=== PATIENT | female | born 1940 | race Caucasian/White ===

== ENCOUNTER → 2016-12-24 | Outpatient (CLI) | payer MEDICARE, OTHER | END | disposition home or self-care (01) | LOC: LAB 08:07 | PROVIDERS: ATTEND Family Medicine | DX: E03.9 Hypothyroidism, unspecified (principal) | CPT/HCPCS: 84443 ==

== ENCOUNTER → 2020-08-30 | Outpatient (CLI) | payer MEDICARE, OTHER ==
[2020-08-30 15:58] LABS: BASO # 0.2 x10^3/uL (0.0-0.2); BASO % 2 % (0-3); EOS # 0.4 x10^3/uL (0.0-0.7); EOS % 3 % (0-3); HEMATOCRIT 41.2 % (36.0-47.0); HEMOGLOBIN 13.1 g/dL (12.0-15.5); LYMPH # 3.1 x10^3/uL (1.0-4.8); LYMPH % 23 % (24-48); MEAN CORPUSCULAR HEMOGLOBIN 28 pg (25-35); MEAN CORPUSCULAR HGB CONC 32 g/dL (31-37); MEAN CORPUSCULAR VOLUME 88 fL (79-100); MONO # 0.9 x10^3/uL (0.0-1.1); MONO % 6 % (0-9); NEUT # 9.2 x10^3uL (1.8-7.7); NEUT % 67 % (31-73); PLATELET COUNT 479 x10^3/uL (140-400); RED BLOOD COUNT 4.68 x10^6/uL (3.50-5.40); RED CELL DISTRIBUTION WIDTH 14.5 % (11.5-14.5); WHITE BLOOD COUNT 13.8 x10^3/uL (4.0-11.0)
== END ==
LOC: DXRAD 14:49
PROVIDERS: ATTEND Family Medicine
DX: R06.02 Shortness of breath (principal)
CPT/HCPCS: 36415; 84145; 85025

== ENCOUNTER → 2021-03-14 | Outpatient (CLI) | payer MEDICARE, OTHER ==
--- NOTE | 2021-03-18 15:47 | RAD ---
MG BILAT SCREEN 03/14/2021 11:42 AM INDICATION: Asymptomatic screening mammogram. COMPARISON: 06/07/2014 TECHNIQUE: 2D CC and MLO projections were obtained of each breast. FINDINGS: Breast density: Category B: There are scattered areas of fibroglandular density. Right breast: There are no suspicious microcalcifications, masses or areas of architectural distortio n. Left breast: There are no suspicious microcalcifications, masses or areas of architectural distortion . Bilateral mammogram is compared to prior examinations appears unchanged. IMPRESSION: Negative bilateral mammogram. BI-RADS category: 1; Negative Recommendations: Recommend annual screening mammography in one year. Electronically signed by: Tabitha Solomon MD (03/18/2021 3:45 PM) [id number]
== END ==
LOC: MAMMO 11:12
PROVIDERS: ATTEND Family Medicine
DX: Z12.31 Encounter for screening mammogram for malignant neoplasm of breast (principal)
CPT/HCPCS: 77063; 77067

== ENCOUNTER 2021-12-01 10:45 | Emergency (ER) | payer MEDICARE, OTHER ==
[~2021-12-01] VITALS: Ht 154.9 cm; Wt 82.0 kg
--- NOTE | 2021-12-01 11:31 | PHYS DOC ---
Past History Additional Past Medical Histor: Gout, dry eyes, osteoporosis, psoriasis Past Surgical History: Appendectomy, Cholecystectomy, Hysterectomy, Other Additional Past Surgical Histo: breast BX, spinal stimulator General Adult EDM: Chief Complaint: MULTIPLE COMPLAINTS HPI: HPI: Patient is an 81-year-old female who presents to the emergency department for aphasia. Patient reports that last night around 2300 she started having a headache she got up and took a hydrocodone. Last known well 2300 last night. She states that she woke up around 8 15-8 30 and noticed that she had difficulty finding her words. Her daughter arrived around 830 and also witnessed aphasia. Patient's daughter reported that they ate breakfast and after eating a significant amount of her breakfast they checked her blood sugar and it was 98. The aphasia quickly resolved. Patient's current complaint is dizziness. She reports that it feels like she is cross eyed. She denies any unilateral weakness, dysuria, hematuria, fever, increased shortness of breath, increased cough as patient does have a history of COPD and a chronic cough, vision loss or blurred vision, headache. Patient has a history of gout, CHF, hyperlipidemia, hypothyroidism, diabetes, hypertension. Patient also has a back stimulator for chronic back pain was recently changed out. Review of Systems: Review of Systems: Constitutional: see HPI Eyes: see HPI Respiratory: see HPI GI: see HPI : see HPI Musculoskeletal: reports chronic back pain-has spinal stimulator Neurologic: see HPI Endocrine: see HPI Physical Exam: PE: Constitutional: Well developed, well nourished, no acute distress, non-toxic appearance. [] HENT: Normocephalic, atraumatic, bilateral external ears normal, oropharynx moist, no oral exudates, nose normal. [] Eyes: PERRL,4mm bilaterally, no nystagmus, EOMI, conjunctiva normal, no discharge. [] Neck: Normal range of motion, no stridor Cardiovascular:Heart rate regular, no murmur [] Lungs & Thorax: Bilateral breath sounds clear to auscultation [] Abdomen: Bowel sounds normal, soft, no tenderness, obese, no masses, no pulsatile masses. [] Skin: Warm, dry, no erythema, no rash. [] Back: No tenderness Extremities: No tenderness, no cyanosis, no clubbing, ROM intact, no edema. 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 [] Psychologic: Affect normal, judgement normal, mood normal. [] Current Patient Data: Vital Signs: Vital Signs Date Time Temp Pulse Resp B/P (MAP) Pulse Ox O2 Delivery O2 Flow Rate FiO2 12/01/21 10:45 97.9 105 20 131/49 (76) 93 Room Air EKG: EKG: EKG performed by ER staff at 1142 shows sinus rhythm rate of 94, QTc 428, no STEMI read by Dr. Glaser. Radiology/Procedures: Radiology/Procedures: []PROCEDURE: CT HEAD WO CONTRAST CT brain without contrast. HISTORY: Aphasia CT scan of brain was done without contrast. Sinuses are clear. A skull fracture is not identified. There is a left subdural hematoma with acute hemorrhage anteriorly and lower density fluid posteriorly. Hemorrhage measures 7 mm in width. There is no shift of the midline. Ventricles are normal in size. IMPRESSION: 1. Left subdural hematoma. FOR INTERNAL CODING PURPOSES Critical result: Findings discussed with ANA CHAVES APRN at 12/01/2021 11:41 AM. RESULT CODE: (C) PQRS Compliance Statement: One or more of the following individualized dose reduction techniques were utilized for this examination: 1. Automated exposure control 2. Adjustment of the mA and/or kV according to patient size 3. Use of iterative reconstruction technique Electronically signed by: Milton Marshall MD (12/01/2021 11:42 AM) [facility] DICTATED AND SIGNED BY: MILTON MARSHALL MD DATE: 12/01/21 1139 CC: MANDO SCHULTZ MD; EMERGENCY,DEPARTMENT; ANA CHAVES APRN ~ PROCEDURE: PORTABLE CHEST 1V AP chest. HISTORY: Short of air, COPD AP view was taken of the chest. There are stimulating leads in the spinal canal. There is scarring in the left lung similar to the prior study from August 2020. Heart is normal in size. There is chronic pleural thickening on the left. There are no acute infiltrates. IMPRESSION: 1. Pleural thickening and scarring on the left. 2. No acute infiltrates. Electronically signed by: Milton Marsahll MD (12/01/2021 11:43 AM) [facility] DICTATED AND SIGNED BY: MILTON MARSHALL MD DATE: 12/01/21 1142 CC: NAHOMY GLASER MD; MANDO SCHULTZ MD; ANA CHAVES MECHANICAL PROJECT ENGINEER ~ EXAM: CTA HEAD AND NECK W/WO CONTRAST DATE: 12/01/2021 12:24 PM INDICATION: subdural bleed TECHNIQUE: CTA angiogram of the head and neck was obtained after IV bolus administration of 100 cc of Isovue-370. The images were sent to workstation and multiplanar reconstructions were obtained. Multiplanar reconstruction images to include MIP and 3-D reconstruction images are submitted. One or more of the following dose reduction techniques were utilized: Automated exposure control (AEC), Adjustment of mA and/or kV according to patient size, Use of iterative reconstruction technique such as ASiR, CT scan done according to ALARA and image gently/image wisely COMPARISON: Noncontrast CT head done earlier. FINDINGS: CTA Head: The visualized distal internal carotid arteries, anterior and middle cerebral arteries are patent and normal caliber. Bilateral pyrometer temperature regulator with aplastic P1 segments. pyrometer temperature regulator are otherwise patent. Vertebrobasilar hypoplasia. No aneurysm or arteriovenous malformation is seen. CTA Neck: Right carotid: The right common carotid artery is patent and normal caliber. Atherosclerosis of the carotid bifurcation. No stenosis of the right internal carotid artery per NASCET criteria. The right external carotid artery is patent. Left carotid: The left common carotid artery is patent and normal caliber. Atherosclerosis of the carotid bifurcation. 10 percent stenosis of the left internal carotid artery per NASCET criteria. The left external carotid artery is patent. Right vertebral: The right vertebral artery is patent and diffusely hypoplastic. Left vertebral: The left vertebral artery is patent and diffusely hypoplastic. The visualized portions of the aortic arch are normal. The origins of the brachiocephalic and subclavian arteries are normal. No cervical lymphadenopathy. The thyroid gland is normal. The parotid and submandibular glands are normal. The visualized aerodigestive tract is unremarkable. Mild to moderate multilevel degenerative disc height loss. Multilevel disc protrusions and marginal osteophytes results in multilevel spinal canal stenosis. Multilevel uncovertebral and facet arthrosis with multilevel neural foraminal narrowing. Lung apices demonstrate emphysematous changes. Right apical opacities. IMPRESSION: 1. No intracranial large vessel occlusion, high-grade stenosis, or aneurysm. 2. Atherosclerosis of the cervical ICAs with 10 percent stenosis on the left and no stenosis on the right. 3. Right apical lung opacities, probably asymmetric subpleural fibrosis or an infectious/inflammatory process although an underlying neoplasm is not entirely excluded. Recommend three-month follow-up chest CT to assess stability/resolution. PQRS Compliance Statement - Stenosis calculations for CT, MR and conventional angiography are based upon measurement of the distal ICA diameter in accordance with the NASCET methodology. Electronically signed by: Stephen Jamison MD (12/01/2021 1:15 PM) [id number] DICTATED AND SIGNED BY: STEPHEN JAMISON MD DATE: 12/01/21 1420 CC: NAHOMY GLASER MD; MANDO SCHULTZ MD; ANA CHAVES APRN ~ Heart Score: C/O Chest Pain: N/A Risk Factors: Risk Factors: DM, Current or recent (<one month) smoker, HTN, HLP, family h istory of CAD, obesity. Risk Scores: Score 0 - 3: 2.5% MACE over next 6 weeks - Discharge Home Score 4 - 6: 20.3% MACE over next 6 weeks - Admit for Clinical Observation Score 7 - 10: 72.7% MACE over next 6 weeks - Early Invasive Strategies Course & Med Decision Making: Course & Med Decision Making Pertinent Labs and Imaging studies reviewed. (See chart for details) Patient presents to the emergency department for aphasia that started at 830 this morning that has resolved. Patient has a history of diabetes and patient did have her blood sugar checked after eating a significant amount of breakfast and it was 90. It is possible that patient's aphasia was due to hypoglycemia versus a neurological event. Patient's NIHSS was 0. Patient does not have any additional neurologic findings. She is complaining of dizziness. Work-up in the emergency department consisted of blood work including troponin and ammonia. Rule out infectious cause for neuro symptoms, urinalysis and chest x-ray performed. Patient also had CT scan of head to rule out mass vs. hemorrhagic cva. 1152: I received a phone call from radiologist with a read from patient's head CT, patient was noted to have a left subdural hematoma that measures 7 mm in width without any midline shift. He reports that this looks acute. Patient denies any trauma. He is not on any anticoagulation. Her vital signs are stable. I discussed this with supervising physician, coags were ordered and a CT a of head and neck was also ordered. I contacted [facility] to determine if we had neurosurgery coverage for transfer in which we do not. I contacted [facility] to attempt to transfer for patient to that facility for neurosurgery consultation. I discussed patient's findings with her and visitor and they are agreeable to care plan. 1300: Patient was noted to have mild elevation in BUN and creatinine, BUN 32, creatinine 1.6. Coags unremarkable, negative troponin, negative ammonia. CTA is pending. Chest x-ray shows no acute findings. Prior have an accepting physician at [facility], Dr. Rusty Barroso, we are pending room assignment at this time for transport. CTA does not show any aneurysm. Dragon Disclaimer: Dragon Disclaimer: This electronic medical record was generated, in whole or in part, using a voice recognition dictation system. NIH Stroke Scale: NIH Stroke Scale Response (Comments) Value Level of Consciousness: 0 Alert/Responsive 0 LOC Questions: 0 Answers both correctly 0 LOC Commands: 0 Performs both tasks 0 Best Gaze: 0 Normal 0 Visual: 0 No visual loss 0 Facial Palsy: 0 Normal, symmetrical 0 Motor - Left Arm 0 No drift 0 Motor - Right Arm 0 No drift 0 Motor - Left Leg 0 No drift 0 Motor: Right Leg 0 No drift 0 Limb Ataxia: 0 Absent 0 Sensory: 0 No loss 0 Best Language: 0 Normal 0 Dysathria: 0 Normal 0 Extinction and Inattention: 0 Normal 0 Total 0 Departure Departure: Impression: Primary Impression: Subdural hematoma Disposition: 02 SHORT TERM HOSPITAL Condition: STABLE Referrals: MANDO SCHULTZ MD (PCP) ANA CHAVES APRN Dec 01, 2021 11:31
--- NOTE | 2021-12-01 11:44 | RAD ---
CT brain without contrast. HISTORY: Aphasia CT scan of brain was done without contrast. Sinuses are clear. A skull fracture is not identified. Th ere is a left subdural hematoma with acute hemorrhage anteriorly and lower density fluid posteriorly. Hemorrhage measures 7 mm in width. There is no shift of the midline. Ventricles are normal in size. IMPRESSION: 1. Left subdural hematoma. FOR INTERNAL CODING PURPOSES Critical result: Findings discussed with ANA CHAVES APRN at 12/01/2021 11:41 AM. RESULT CODE: (C) PQRS Compliance Statement: One or more of the following individualized dose reduction techniques were utilized for this examinat ion: 1. Automated exposure control 2. Adjustment of the mA and/or kV according to patient size 3. Use of iterative reconstruction technique Electronically signed by: Milton Marshall MD (12/01/2021 11:42 AM) [facility]
--- NOTE | 2021-12-01 11:45 | RAD ---
AP chest. HISTORY: Short of air, COPD AP view was taken of the chest. There are stimulating leads in the spinal canal. There is scarring in the left lung similar to the prior study from August 2020. Heart is normal in size. There is chron ic pleural thickening on the left. There are no acute infiltrates. IMPRESSION: 1. Pleural thickening and scarring on the left. 2. No acute infiltrates. Electronically signed by: Milton Marshall MD (12/01/2021 11:43 AM) [facility]
[2021-12-01 12:22] LABS: BASO # 0.2 x10^3/uL (0.0-0.2); BASO % 2 % (0-3); EOS # 0.4 x10^3/uL (0.0-0.7); EOS % 3 % (0-3); LYMPH # 1.9 x10^3/uL (1.0-4.8); LYMPH % 17 % (24-48); MEAN CORPUSCULAR HEMOGLOBIN 30 pg (25-35); MEAN CORPUSCULAR HGB CONC 33 g/dL (31-37); MEAN CORPUSCULAR VOLUME 92 fL (79-100); MONO # 0.7 x10^3/uL (0.0-1.1); MONO % 6 % (0-9); NEUT # 8.5 x10^3uL (1.8-7.7); NEUT % 73 % (31-73); PLATELET COUNT 351 x10^3/uL (140-400); RED BLOOD COUNT 4.34 x10^6/uL (3.50-5.40); RED CELL DISTRIBUTION WIDTH 15.1 % (11.5-14.5); WHITE BLOOD COUNT 11.7 x10^3/uL (4.0-11.0)
[2021-12-01 12:35] LABS: CALCIUM 9.3 mg/dL (8.5-10.1); CREATININE 1.6 mg/dL (0.6-1.0); GFR 30.9; POTASSIUM 4.9 mmol/L (3.5-5.1)
[2021-12-01] MEDS: IOHEXOL 350 MG/ML 100 ML VIAL. IV ONE (12:37)
[2021-12-01 12:42] LABS: ALBUMIN 3.3 g/dL (3.4-5.0); TOTAL BILIRUBIN 0.7 mg/dL (0.2-1.0); TOTAL PROTEIN 6.7 g/dL (6.4-8.2)
--- NOTE | 2021-12-01 13:18 | RAD ---
EXAM: CTA HEAD AND NECK W/WO CONTRAST DATE: 12/01/2021 12:24 PM INDICATION: subdural bleed TECHNIQUE: CTA angiogram of the head and neck was obtained after IV bolus administration of 100 cc of Isovue-370. The images were sent to workstation and multiplanar reconstructions were obtained. [facility] iplanar reconstruction images to include MIP and 3-D reconstruction images are submitted. One or more of the following dose reduction techniques were utilized: Automated exposure control (AEC ), Adjustment of mA and/or kV according to patient size, Use of iterative reconstruction technique johnson ch as ASiR, CT scan done according to ALARA and image gently/image wisely COMPARISON: Noncontrast CT head done earlier. FINDINGS: CTA Head: The visualized distal internal carotid arteries, anterior and middle cerebral arteries are patent and normal caliber. Bilateral online media buyer with aplastic P1 segments. online media buyer are otherwise patent. Vertebrob asilar hypoplasia. No aneurysm or arteriovenous malformation is seen. CTA Neck: Right carotid: The right common carotid artery is patent and normal caliber. Atherosclerosis of the c arotid bifurcation. No stenosis of the right internal carotid artery per NASCET criteria. The right e xternal carotid artery is patent. Left carotid: The left common carotid artery is patent and normal caliber. Atherosclerosis of the car otid bifurcation. 10 percent stenosis of the left internal carotid artery per NASCET criteria. The le ft external carotid artery is patent. Right vertebral: The right vertebral artery is patent and diffusely hypoplastic. Left vertebral: The left vertebral artery is patent and diffusely hypoplastic. The visualized portions of the aortic arch are normal. The origins of the brachiocephalic and subclav jovi arteries are normal. No cervical lymphadenopathy. The thyroid gland is normal. The parotid and submandibular glands are no rmal. The visualized aerodigestive tract is unremarkable. Mild to moderate multilevel degenerative disc height loss. Multilevel disc protrusions and marginal o steophytes results in multilevel spinal canal stenosis. Multilevel uncovertebral and facet arthrosis with multilevel neural foraminal narrowing. Lung apices demonstrate emphysematous changes. Right apical opacities. IMPRESSION: 1. No intracranial large vessel occlusion, high-grade stenosis, or aneurysm. 2. Atherosclerosis of the cervical ICAs with 10 percent stenosis on the left and no stenosis on the r ight. 3. Right apical lung opacities, probably asymmetric subpleural fibrosis or an infectious/inflammatory process although an underlying neoplasm is not entirely excluded. Recommend three-month follow-up ch est CT to assess stability/resolution. PQRS Compliance Statement - Stenosis calculations for CT, MR and conventional angiography are based u mark measurement of the distal ICA diameter in accordance with the NASCET methodology. Electronically signed by: Pascual Mora MD (12/01/2021 1:15 PM) [id number]
[2021-12-01] MEDS: IV DEXTROSE 5%-LACT RINGERS 1,000 ML IV ONE (14:45)
[2021-12-01 17:55] VITALS: BP 112/66
--- NOTE | 2021-12-01 19:39 | EKG ---
[address] [address] Test Date: 2021-12-01 Test Time: 11:42:39 Pat Name: STEPH NEVILLE Department: Room: Gender: F Machine Tech: : [id number] Requested By: ANA CHAVES Order Number: [id number] Reading MD: Measurements Intervals [place] Rate: 94 P: 90 GA: 142 QRS: -34 QRSD: 104 T: 51 QT: 338 QTc: 428 Interpretive Statements SINUS RHYTHM ATRIAL PREMATURE COMPLEX(ES) ABNORMAL LEFT AXIS DEVIATION R-S TRANSITION ZONE IN V LEADS DISPLACED TO THE LEFT LEFT ANTERIOR FASCICULAR BLOCK QRS(T) CONTOUR ABNORMALITY CONSIDER ANTEROLATERAL MYOCARDIAL DAMAGE ABNORMAL ECG RI6.01 No previous ECG available for comparison
== END 2021-12-01 18:00 | disposition short-term general hospital (02) ==
LOC: ER 10:45
DX: I62.00 Nontraumatic subdural hemorrhage, unspecified (principal); R47.01 Aphasia; J44.9 Chronic obstructive pulmonary disease, unspecified; I11.0 Hypertensive heart disease with heart failure; I50.9 Heart failure, unspecified; E78.5 Hyperlipidemia, unspecified; E03.9 Hypothyroidism, unspecified; E11.9 Type 2 diabetes mellitus without complications; G89.29 Other chronic pain; Z20.822 Contact with and (suspected) exposure to COVID-19
CPT/HCPCS: 36415; 70450; 70496; 70498; 71045; 80053; 82140; 82947; 84484; 85025; 85610; 85730; 87426; 93005; 96360; 96361; 99285; Q9967